=== PATIENT | male | born 1975 | race Caucasian/White ===

== ENCOUNTER → 2020-12-13 | Outpatient (CLI) | payer OTHER | LOC: RAD 06:37 | DX: R06.02 Shortness of breath (principal) | CPT/HCPCS: 71046 ==

== ENCOUNTER 2021-12-16 13:28 | Emergency (ER) | payer OTHER ==
[2021-12-16 14:14] LABS: RED BLOOD COUNT 4.52 M/UL (4.20-5.50); WHITE BLOOD COUNT 5.6 K/UL (4.5-11.0)
[2021-12-16 14:31] LABS: BUN/CREATININE RATIO 18 (0-10)
[2021-12-16] MEDS ORDERED: ONDANSETRON ODT4 MG PO (15:21)
== END 2021-12-16 15:32 | disposition home or self-care (01) ==
LOC: ER1 13:28
PROVIDERS: Nurse Practitioner
DX: R11.2 Nausea with vomiting, unspecified (principal); Z20.822 Contact with and (suspected) exposure to COVID-19; F17.210 Nicotine dependence, cigarettes, uncomplicated; J44.9 Chronic obstructive pulmonary disease, unspecified; I10 Essential (primary) hypertension
CPT/HCPCS: 0240U; 80053; 81001; 82150; 83690; 85025; 96374; 99284; J1885

== ENCOUNTER 2021-12-29 18:11 | Emergency (ER) | payer OTHER ==
[~2021-12-29 18:11] MED LIST: ONDANSETRON ODT4 MG PO
== END 2021-12-29 21:26 | disposition home or self-care (01) ==
LOC: ER1 18:11
DX: R51.9 Headache, unspecified (principal); R11.2 Nausea with vomiting, unspecified; Z86.69 Personal history of other diseases of the nervous system and sense organs; I10 Essential (primary) hypertension; J44.9 Chronic obstructive pulmonary disease, unspecified; F17.210 Nicotine dependence, cigarettes, uncomplicated
CPT/HCPCS: 70450; 96374; 96375; 99284; J1200; J1885; J2765